=== PATIENT | male | born 1990 | race Caucasian/White ===

== ENCOUNTER 2020-04-17 23:34 | Emergency (ER) | payer MEDICAID, SELFPAY ==
--- NOTE | ~2020-04-17 | CT_ITS ---
EXAMINATION: CT abdomen pelvis w con DATE: 04/18/2020 01:21 INDICATION: Right upper quadrant pain, burning. Nausea, vomiting and diarrhea for 6 days. TECHNIQUE: Computed tomography (CT) of the abdomen and pelvis was performed with 100 cc Omnipaque 350 intravenous contrast. Automated exposure control and iterative reconstruction technique were employe d. Exam dose: 1483.32 mGy-cm total exam DLP. COMPARISON: 04/29/2019 CT abdomen pelvis FINDINGS: The lung bases are clear. Normal heart size. No pericardial or pleural effusion. The gallbladder is unremarkable. No bile duct or pancreatic duct dilatation. No hepatic, splenic, pancreatic or right adrenal mass is noted. Stable 7 mm left adrenal nodule, like ly a small adenoma. No renal mass lesion is evident. There are 2 up to 4 mm contiguous nonobstructing left renal calculi. No ureteral calculus or hydroureteronephrosis. The urinary bladder is largely evacuated. The prostat e gland appears unremarkable. Normal caliber of the abdominal aorta. No intraperitoneal or retroperitoneal or pelvic mass lesion or adenopathy or ascites. 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 No bowel obstruction, bowel wall thickening, pneumatosis or intraperitoneal free air. No evidence of appendicitis. Chronic mild loss of height and anterior wedging of T11. IMPRESSION: Nonobstructing left nephrolithiasis Reviewed, dictated and finalized at [facility]. Reviewed, dictated and finalized at [facility].
[2020-04-17 23:37] VITALS: BP 175/100; PULSE 103; RESP 18; TEMP 37; O2SAT 99
[2020-04-18 00:17] LABS: Basophils Absolute Auto 0.1 K/mm3 (0.0-0.1); Basophils Percent Auto 0.6 % (0.2-1.2); Eosinophils Percent Auto 0.4 % (0-4.4); Hematocrit 45.7 % (42.0-52.0); Hemoglobin 16.3 g/dL (14.0-18.0); Immature Granulocyte Absolute 0.03 K/mm3 (0.00-0.031); Immature Granulocyte Percent A 0.4 % (0-0.5); Lymphocytes Absolute Auto 1.59 K/mm3 (0.9-3.2); Mean Corpuscular HGB Conc 35.7 g/dl (32-36); Mean Corpuscular Hemoglobin 30.9 pg (26-34); Mean Corpuscular Volume 86.6 fl (80-100); Mean Platelet Volume 10.6 fl (7.4-10.4); Monocytes Absolute Auto 0.8 K/mm3 (0.1-0.6); Monocytes Percent Auto 8.9 % (2.6-8.5); Neutrophils Absolute Auto 5.9 K/mm3 (1.3-6.7); Neutrophils Percent Auto 70.7 % (45.5-73.1); Platelet Count Result 228 k/mm3 (150-375); Red Blood Count 5.28 M/mm3 (4.6-6.20); Red Cell Distribution Width 12.6 % (11.5-14.5); White Blood Count 8.4 K/mm3 (4.5-10.0)
--- NOTE | 2020-04-18 00:36 | ED.NAVMDI ---
HPI - Nausea/Vomiting/Diarrhea General Chief complaint: Nausea/Vomiting/Diarrhea Stated complaint: UNCONTROLLABLE VOMITING Time Seen by Provider: 04/18/20 00:14 History of Present Illness HPI Narrative: Patient presents with upper abdominal pain vomiting for 5 days. He has a history of cyclic vomiting. He stopped smoking marijuana a year ago and then resumed it again. He has had a GI work-up with no firm diagnosis. He says the pain is 8 out of 10. He denies fever chills and sweats. Surgical history of circumcision. 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 MD elicited complaint: nausea and vomiting Pertinent past history: cyclical vomiting Onset (ago): day(s) Description of vomiting: food contents Associated nausea: Yes Associated abdominal pain: Yes Location of pain: epigastric Pain consistency: intermittent Severity: moderate Exacerbating factors: vomiting Relieving factors: none Related Data Allergies Allergy/AdvReac Type Severity Reaction Status Date / Time No Known Allergies Allergy Unverified 04/17/20 23:36 Review of Systems Review of Systems: Narrative: CONSTITUTIONAL: Denies fever, chills, or sweats. EYES: Denies visual changes, redness, or discharge. ENT: Denies rhinorrhea, congestion, sore throat, or otalgia. CARDIOVASCULAR: Denies chest pain, palpitations, or edema. RESPIRATORY: Denies cough or dyspnea. GASTROINTESTINAL: He has abdominal pain, nausea, vomiting, but not diarrhea. GENITOURINARY: Denies dysuria or hematuria. SKIN: Denies rash or itching. MUSCULOSKELETAL: Denies back pain, joint pain, or myalgia. NEUROLOGIC: Denies headache, numbness, or weakness. . All systems reviewed & are unremarkable except as noted in HPI and below PMFSH Past Medical History Medical History Cyclic vomiting syndrome Overweight Surgical History Surgical History (Updated 04/18/20 @ 00:43 by Mahi Kruger MD) History of circumcision Social History Social History (Updated 04/18/20 @ 00:43 by Mahi Kruger MD) Alcohol intake: current Substance use: current Substance use type: marijuana Gender identity (if verbalized by the patient): Male Exam Narrative: Exam Narrative: GENERAL: Well-appearing, well-nourished, and in no acute distress. Overweight. Laying with his hand between his legs. HEAD: Normocephalic, atraumatic. EYES: PERRLA and EOMI. ENT: Nares clear, no rhinorrhea or epistaxis. Mucous membranes moist. NECK: Supple. CHEST: Clear to auscultation. No respiratory distress. HEART: Regular rate and rhythm. No murmur heard. Normal peripheral pulses. ABDOMEN: Soft, nontender, nondistended, normal active bowel sounds. EXTREMITIES: Normal range of motion. No edema. SKIN: Warm, dry, no rash. NEURO: No focal deficits. Alert and oriented x3. PSYCH: Normal mood and affect. Course Reevaluation(s) Reevaluation #1: Went back in to tell the patient the results of his CAT scan. He is feeling better. He has 1 Zofran left at home. But he said it does not really work. I offered Phenergan suppositories and he accepts. Date: 04/18/20 Time: 01:53 Vital Signs Vital signs: Vital Signs Temperature 98.6 F 04/17/20 23:37 Pulse Rate 103 H 04/17/20 23:37 Respiratory Rate 18 04/17/20 23:37 Blood Pressure 175/100 H 04/17/20 23:37 Pulse Oximetry 99 04/17/20 23:37 Temperature 98.6 F 04/17/20 23:37 Pulse Rate 103 H 04/17/20 23:37 Respiratory Rate 18 04/17/20 23:37 Blood Pressure 175/100 H 04/17/20 23:37 Pulse Oximetry 99 04/17/20 23:37 MDM - Nausea/Vomiting/Diarrhea Medical Records Attestation: I reviewed the patient's medical records. Lab Data Attestation: I reviewed the patient's lab results. Result diagrams: 04/17/20 23:49 04/17/20 23:49 Labs: Lab Results 04/17/20 04/17/20 04/18/20 Range/Units 23:49 23:49 00:27 WBC 8.4 (4.5-10.0) K/mm3 RBC 5.28 (4.6-6.20) M/mm3 Hgb 16.3 (14.0-18.0)
[2020-04-18 00:37] LABS: Alanine Aminotransferase 35 U/L (4-50); Albumin Level 5.2 g/dL (3.5-5.1); Alkaline Phosphatase 109 U/L (38-126); Anion Gap 18.1 mmol/L (7-16); Aspartate Amino Transferase 41 U/L (17-59); Bilirubin,Total 1.7 mg/dL (0.2-1.3); Blood Urea Nitrogen 18 mg/dL (9-20); Calcium 9.6 mg/dL (8.4-10.2); Carbon Dioxide 23 mmol/L (22-30); Chloride 96 mmol/L (98-107); Estimated CRCL calculation 118 ml/min; Estimated Glomerular Filt Rate > 60; Glucose 107 mg/dL (75-110); Lipase 178 U/L (23-300); Potassium 4.1 mmol/L (3.4-5.0); Sodium 133 mmol/L (137-145)
[2020-04-18 00:40] LABS: Add Urine Microscopic? YES; Appearance Urine Clear (Clear); Bacteria Urine Trace /hpf; Bilirubin Urine Negative (Negative); Blood Urine 1+ (Negative); Color Urine Amber (Yellow); Glucose Urine UA Negative (Negative); Ketones Urine 1+ mg/dL (Negative); Leukocyte Esterase Ur Negative LEU/UL (Negative); Mucus Urine Heavy /lpf; Nitrate Urine Negative (Negative); Protein Urine 3+ mg/dL (Negative); RBC Urine 0-2 /hpf (0-2); Squamous Epithelial Cell Urine Rare /hpf (Few); WBC Urine 0-3 /hpf
[2020-04-18 00:44] LABS: Specific Grav Ur 1.034 (1.001-1.035)
[2020-04-18] MEDS: ONDANSETRON INJ 4 MG/2 ML VIAL IV PUSH (00:53)
[2020-04-18] MEDS: FAMOTIDINE 20 MG/2 ML VIAL IV PUSH (00:54)
[2020-04-18] MEDS: SODIUM CHLORIDE 0.9% IV 1,000 ML 999 ML IV CONT (00:56)
[2020-04-18] MEDS: KETOROLAC 15 MG/ML VIAL (*BKC) IV PUSH (00:56)
[2020-04-18 01:26] VITALS: TEMP 37
[2020-04-18 01:29] VITALS: BP 156/81; PULSE 97; RESP 16; O2SAT 99
[2020-04-18 02:15] VITALS: BP 166/85; PULSE 91; RESP 16; TEMP 36.3; O2SAT 100
== END 2020-04-18 02:18 | disposition home or self-care (01) ==
PROVIDERS: Emergency Provider Emergency Medicine; PCP Family Medicine
DX: R11.15 Cyclical vomiting syndrome unrelated to migraine (principal); E66.3 Overweight; Z68.37 Body mass index [BMI] 37.0-37.9, adult
CPT/HCPCS: 36415; 74177; 80053; 81001; 83690; 85025; 96361; 96374; 96375; 99284; J1885; J2405; J7030; Q9967

== ENCOUNTER 2020-08-01 09:29 | Outpatient (CLI) | payer OTHER, SELFPAY ==
--- NOTE | ~2020-08-01 | XR_ITS ---
XR abdomen/kub 1V DATE: 08/01/2020 10:04 INDICATION: Left kidney stone TECHNIQUE: AP projection, 2 views COMPARISON: 04/18/2020 CT abdomen pelvis with IV contrast material FINDINGS: Surgical clips, right upper quadrant, consistent with apparent cholecystectomy since 04/18/[address] abdomen pelvis examination. Approximately 2 x 9 mm calcified calculus of the mid left kidney. The psoas shadows are intact. No visceromegaly is evident. There is no evidence of bowel obstruction. Included skeletal structures are unremarkable. IMPRESSION: Evidence of cholecystectomy since 04/18/2020 Left nonobstructive nephrolithiasis Reviewed, dictated and finalized at [facility]. Reviewed, dictated and finalized at [facility]. [employer] SPECIALIST
== END 2020-08-01 09:30 | disposition home or self-care (01) ==
PROVIDERS: PCP Family Medicine
DX: N20.0 Calculus of kidney (principal)
CPT/HCPCS: 74018

== ENCOUNTER 2020-08-22 00:57 | Emergency (ER) | payer OTHER, SELFPAY ==
--- NOTE | ~2020-08-22 | XR_ITS ---
EXAMINATION: XR chest 1V portable DATE: 08/22/2020 01:59 INDICATION: Cough TECHNIQUE: frontal view of the chest was obtained. COMPARISON: Chest radiograph dated 04/26/2019 FINDINGS: The lungs are clear with no focal airspace opacities, pulmonary edema, pleural effusion or pneumothor ax. The cardiomediastinal silhouette is normal. Visualized bones and soft tissues are unremarkable. IMPRESSION: 1. No acute cardiopulmonary disease. Reviewed, dictated and finalized at [facility]. PROCESS WORKER
[2020-08-22 01:03] VITALS: BP 174/94; PULSE 84; RESP 20; TEMP 36.8; O2SAT 97
--- NOTE | 2020-08-22 01:12 | ECG_ITS ---
Measurements Intervals [place] Rate: 76 P: 53 IL: 144 QRS: 51 QRSD: 121 T: 19 QT: 388 QTc: 438 Interpretive Statements SINUS RHYTHM RIGHT BUNDLE BRANCH BLOCK BASELINE ARTIFACT- I, II, III, V1 ABNORMAL ECG Electronically Signed On 08-22-2020 7:04:42 TUBE WINDER by Reymundo Kamara D.O.
--- NOTE | 2020-08-22 01:15 | ED.GENADULT ---
HPI - General Adult General Chief complaint: Nausea/Vomiting/Diarrhea Stated complaint: Covid-19 symptoms Time Seen by Provider: 08/22/20 01:05 Source: patient Mode of arrival: ambulatory Limitations: no limitations History of Present Illness HPI narrative: This patient is a 30 year old male with history of cyclic vomiting who presents for evaluation of possible covid. He states he has not felt well since Thursday. He is having nausea, vomiting, diarrhea , cough and congestion. He has mid abdominal pain intermittent prior to episodes of vomiting or diarrhea. He reports that his cough usually proceeds his vomiting but it seems worse today. He denies fever but he states he feels warm prior to having emesis. He denies any sick contacts. Related Data Allergies Allergy/AdvReac Type Severity Reaction Status Date / Time No Known Allergies Allergy Unverified 04/17/20 23:36 Review of Systems Review of Systems: All systems reviewed & are unremarkable except as noted in HPI and below Constitutional: Constitutional: Reports fatigue and Denies fever(s) ENT: Reports nasal congestion and Denies sore throat Cardiovascular: Cardiovascular: Denies chest pain Respiratory: Respiratory: Reports cough, Reports dyspnea and Denies wheezing Gastrointestinal: Gastrointestinal: Reports abdominal pain, Reports diarrhea, Reports nausea and Reports vomiting PMFSH Past Medical History Medical History (Updated 08/22/20 @ 04:22 by Debbie Pugh MD) Cyclic vomiting syndrome Overweight Surgical History Surgical History (Updated 08/22/20 @ 01:19 by Debbie Pugh MD) History of circumcision Hx of cholecystectomy Social History Social History (Updated 08/22/20 @ 01:20 by Debbie Pugh MD) Alcohol intake: current Substance use: current Substance use type: marijuana Other substance usage details: he states he has cut down on marijuana use over the past 2 weeks. Gender identity (if verbalized by the patient): Male Exam Narrative: Exam Narrative: GENERAL: Well-appearing, well-nourished, and in no acute distress. HEAD: Normocephalic, atraumatic EYES: PERRLA and EOMI, conjunctiva clear without discharge THROAT:Mucous membranes moist, NECK: Supple, RESPIRATORY: No respiratory distress, Airway patent, Respirations non-labored, Clear to auscultation without rales, rhonchi or wheeze HEART: Regular rate and rhythm. No murmur heard. Normal peripheral pulses. ABDOMEN: Soft, nontender, nondistended, normal active bowel sounds. No masses. No rebound or guarding, No organomegaly. EXTREMITIES: No edema, normal strength with full range of motion. SKIN: Warm, dry, normal color without rash NEURO: Alert and oriented x3. CN 2-12 grossly intact. No focal deficits. PSYCH: Normal mood and affect. Course Reevaluation(s) Reevaluation #1: I discussed with patient that labs are unremarkable. His chest xray is normal. He has no complaints currently and he is able to tolerate PO. Date: 08/22/20 Time: 04:20 Vital Signs Vital signs: Vital Signs Temperature 98.2 F 08/22/20 01:03 Pulse Rate 84 08/22/20 01:03 Respiratory Rate 20 08/22/20 01:03 Blood Pressure 174/94 H 08/22/20 01:03 Pulse Oximetry 97 08/22/20 01:03 Temperature 98.2 F 08/22/20 01:03 Pulse Rate 77 08/22/20 04:50 Respiratory Rate 18 08/22/20 04:50 Blood Pressure 152/86 H 08/22/20 04:50 Pulse Oximetry 99 08/22/20 04:50 Medical Decision Making Vital Signs Vital Signs: Vital Signs Temperature 98.2 F 08/22/20 01:03 Pulse Rate 84 08/22/20 01:03 Respiratory Rate 20 08/22/20 01:03 Blood Pressure 174/94 H 08/22/20 01:03 Pulse Oximetry 97 08/22/20 01:03 Temperature 98.2 F 08/22/20 01:03 Pulse Rate 77 08/22/20 04:50 Respiratory Rate 18 08/22/20 04:50 Blood Pressure 152/86 H 08/22/20 04:50 Pulse Oximetry 99 08/22/20 04:50 Lab Data Lab results reviewed: Yes I reviewed the pat
[2020-08-22] MEDS: SODIUM CHLORIDE 0.9% IV 1,000 ML 999 ML IV CONT ×2 (01:34→03:00)
[2020-08-22] MEDS: ONDANSETRON INJ 4 MG/2 ML VIAL IV PUSH (01:35)
[2020-08-22 01:57] VITALS: BP 156/97; PULSE 74
[2020-08-22 01:58] VITALS: BP 159/99; PULSE 71
[2020-08-22 01:59] VITALS: BP 152/83; PULSE 72
[2020-08-22 02:04] LABS: Basophils Percent Auto 0.4 % (0.2-1.2); Eosinophils Percent Auto 0.5 % (0-4.4); Hemoglobin 15.6 g/dL (14.0-18.0); Immature Granulocyte Absolute 0.03 K/mm3 (0.00-0.031); Immature Granulocyte Percent A 0.4 % (0-0.5); Lymphocytes Absolute Auto 1.72 K/mm3 (0.9-3.2); Lymphocytes Percent Auto 21.3 % (18.3-44.2); Mean Corpuscular HGB Conc 35.5 g/dl (32-36); Mean Corpuscular Hemoglobin 31.3 pg (26-34); Mean Corpuscular Volume 88.2 fl (80-100); Mean Platelet Volume 10.5 fl (7.4-10.4); Monocytes Absolute Auto 0.6 K/mm3 (0.1-0.6); Monocytes Percent Auto 7.8 % (2.6-8.5); Neutrophils Absolute Auto 5.6 K/mm3 (1.3-6.7); Neutrophils Percent Auto 69.6 % (45.5-73.1); Platelet Count Result 183 k/mm3 (150-375); Red Blood Count 4.99 M/mm3 (4.6-6.20); Red Cell Distribution Width 12.4 % (11.5-14.5); White Blood Count 8.1 K/mm3 (4.5-10.0)
[2020-08-22 02:20] LABS: Alanine Aminotransferase 26 U/L (4-50); Albumin Level 4.9 g/dL (3.5-5.1); Alkaline Phosphatase 121 U/L (38-126); Anion Gap 13 mmol/L (8-16); Aspartate Amino Transferase 30 U/L (17-59); Bilirubin,Total 0.8 mg/dL (0.2-1.3); Blood Urea Nitrogen 9 mg/dL (9-20); Calcium 9.7 mg/dL (8.4-10.2); Carbon Dioxide 24 mmol/L (22-30); Chloride 105 mmol/L (98-107); Estimated CRCL calculation 122 ml/min; Estimated Glomerular Filt Rate > 60; Glucose 133 mg/dL (75-110); Lipase 57 U/L (23-300); Potassium 3.4 mmol/L (3.4-5.0); Sodium 142 mmol/L (137-145)
[2020-08-22 02:23] LABS: CRP 0.6 mg/dL (<1.0)
[2020-08-22] MEDS: PROMETHAZINE HCL 25 MG/ML AMPUL 12.5 MG IV PUSH (02:33)
[2020-08-22] MEDS: SODIUM CHLORIDE 0.9% IV 50 ML (02:34)
[2020-08-22 03:17] VITALS: BP 155/98; PULSE 86; RESP 18; O2SAT 100
[2020-08-22 04:17] LABS: Add Urine Microscopic? YES; Appearance Urine Clear (Clear); Bacteria Urine Trace /hpf; Bilirubin Urine Negative (Negative); Blood Urine Negative (Negative); Color Urine Yellow (Yellow); Glucose Urine UA Negative (Negative); Ketones Urine 2+ mg/dL (Negative); Leukocyte Esterase Ur Negative LEU/UL (Negative); Mucus Urine Heavy /lpf; Nitrate Urine Negative (Negative); Protein Urine 1+ mg/dL (Negative); RBC Urine 0-2 /hpf (0-2); Specific Grav Ur 1.024 (1.001-1.035); Urobilinogen Urine Negative mg/dL (<2.0); WBC Urine 0-3 /hpf
[2020-08-22 04:50] VITALS: BP 152/86; PULSE 77; RESP 18; O2SAT 99
[2020-08-22 14:22] LABS: SARS-CoV-2 RNA PCR Negative
== END 2020-08-22 05:20 | disposition home or self-care (01) ==
PROVIDERS: Emergency Provider General Practice; PCP Family Medicine
DX: Z20.828 Contact with and (suspected) exposure to other viral communicable diseases (principal); B34.9 Viral infection, unspecified
CPT/HCPCS: 36415; 71045; 80053; 81001; 83690; 85025; 86140; 87635; 87804; 93005; 96361; 96374; 96375; 99284; C9803; J2405; J2550; J7030; U0003

== ENCOUNTER 2020-12-31 05:58 | Emergency (ER) | payer OTHER, SELFPAY ==
[2020-12-31] VITALS (7 sets, daily range): BP systolic 129–175; BP diastolic 75–109; PULSE 73–102; RESP 17–18; TEMP 37; O2SAT 97–99
--- NOTE | ~2020-12-31 | CT_ITS ---
EXAMINATION: CT abdomen pelvis w con DATE: 12/31/2020 07:39 INDICATION: Abdominal pain. Leukocytosis. TECHNIQUE: Computed tomography (CT) of the abdomen and pelvis was performed with 100 cc Omnipaque 350 intravenous contrast. Automated exposure control and iterative reconstruction technique were employe d. Exam dose: 1282.74 mGy-cm total exam DLP. COMPARISON: 04/18/2020 CT abdomen pelvis FINDINGS: The lung bases are clear. Normal heart size. No pericardial or pleural effusion. Status post cholecystectomy. No hepatic, splenic, pancreatic, adrenal or renal mass lesion is evident . No bile duct or pancreatic duct dilatation. Approximately 4 x 9.4 mm calculus or 2 contiguous calculi of the left kidney, nonobstructing. No othe r urinary tract calculus. No ureteral calculus or hydroureteronephrosis. Left-sided inferior vena cava, anatomic variant. Normal caliber of the abdominal aorta. No intraperitoneal or retroperitoneal or pelvic mass lesion or adenopathy or ascites. Moderate thickness of the urinary bladder wall which may be due to underdistention. Prostate gland ap pears normal. The colon is evacuated. No bowel obstruction or intraperitoneal free air. Small fat-containing umbilical hernia. No suspicious osteolytic or osteoblastic lesions. Stable chronic mild anterior wedging of T11 and mil d degenerative spurring of the thoracic and lumbar spine. IMPRESSION: Nonobstructive left nephrolithiasis Status post cholecystectomy Left-sided inferior vena cava Reviewed, dictated and finalized at [facility]. Reviewed, dictated and finalized at [facility].
--- NOTE | 2020-12-31 06:07 | ED.ABDPAIN ---
HPI - Abdominal Pain General Chief Complaint: Abdominal Pain <Shawn Serrano MD - Last Filed: 12/31/20 18:56> Stated Complaint: vomiting and muscle cramps <Shawn Serrano MD - Last Filed: 12/31/20 18:56> Time Seen by Provider: 12/31/20 06:00 <Shawn Serrano MD - Last Filed: 12/31/20 18:56> History of Present Illness HPI narrative: 30 yo male with h/o cyclic vomiting syndrome presents to the ED for nausea and vomiting. He has been vomiting for the past 2 days. He reports that the vomiting is accompanied severe abdominal cramping and back pain. He has no pain at this time. He has not tried anything for his symptoms. No fever. <Shawn Serrano MD - Last Filed: 12/31/20 18:56> Related Data Allergies/Adverse Reactions: Allergies Allergy/AdvReac Type Severity Reaction Status Date / Time No Known Allergies Allergy Unverified 04/17/20 23:36 <Shawn Serrano MD - Last Filed: 12/31/20 18:56> Review of Systems Review of Systems: All systems reviewed & are unremarkable except as noted in HPI and below <Shawn Serrano MD - Last Filed: 12/31/20 18:56> Constitutional: Constitutional: Denies fever(s) <Shawn Serrano MD - Last Filed: 12/31/20 18:56> Eyes: Eyes: Reports no additional eye complaints <Shawn Serrano MD - Last Filed: 12/31/20 18:56> ENT: Reports system reviewed and no additional complaints, except as documented <Shawn Serrano MD - Last Filed: 12/31/20 18:56> Cardiovascular: Cardiovascular: Denies chest pain <Shawn Serrano MD - Last Filed: 12/31/20 18:56> Respiratory: Respiratory: Denies dyspnea <Shawn Serrano MD - Last Filed: 12/31/20 18:56> Gastrointestinal: Gastrointestinal: Reports nausea and Reports vomiting <Shawn Serrano MD - Last Filed: 12/31/20 18:56> Musculoskeletal: Musculoskeletal: Reports back pain <Shawn Serrano MD - Last Filed: 12/31/20 18:56> [facility] Past Medical History Medical History: Medical History Cyclic vomiting syndrome Overweight <Shawn Serrano MD - Last Filed: 12/31/20 18:56> Surgical History Surgical History: Surgical History History of circumcision Hx of cholecystectomy <Shawn Serrano MD - Last Filed: 12/31/20 18:56> Social History Social History: Social History Alcohol intake: current Substance use: current Substance use type: marijuana Other substance usage details: he states he has cut down on marijuana use over the past 2 weeks. Gender identity (if verbalized by the patient): Male <Shawn Serrano MD - Last Filed: 12/31/20 18:56> Exam Const: General: no acute distress and alert <Shawn Serrano MD - Last Filed: 12/31/20 18:56> Orientation/consciousness: patient oriented x3 <Shawn Serrano MD - Last Filed: 12/31/20 18:56> HENMT: Head: normal to inspection <Shawn Serrano MD - Last Filed: 12/31/20 18:56> Resp: Effort & Inspection: normal respiratory effort <Shawn Serrano MD - Last Filed: 12/31/20 18:56> Auscultation: clear to auscultation bilaterally <Shawn Serrano MD - Last Filed: 12/31/20 18:56> Cardio: Rate: regular rate <Shawn Serrano MD - Last Filed: 12/31/20 18:56> Rhythm: regular rhythm <Shawn Serrano MD - Last Filed: 12/31/20 18:56> GI: Inspection: non-distended <Shawn Serrano MD - Last Filed: 12/31/20 18:56> GI Palp: Yes Soft to palpation and No Tenderness to palpation present (GI) <Shawn Serrano MD - Last Filed: 12/31/20 18:56> Skin: General skin exam: normal color <Shawn Serrano MD - Last Filed: 12/31/20 18:56> Neuro: General: patient oriented x3, moves all extremities, no focal motor deficits and CN's II-XI intact bilaterally <Shawn Serarno MD - Last Filed: 12/31/20 18:5
[2020-12-31] MEDS: SODIUM CHLORIDE 0.9% IV 2,000 ML 999 ML IV CONT (06:20)
[2020-12-31] MEDS: ONDANSETRON INJ 4 MG/2 ML VIAL IV PUSH (06:20)
[2020-12-31] MEDS: DICYCLOMINE HCL INJ 20 MG/2 ML VIAL IM (06:20)
[2020-12-31 06:28] LABS: Basophils Percent Auto 0.2 % (0.2-1.2); Hemoglobin 16.3 g/dL (14.0-18.0); Immature Granulocyte Absolute 0.04 K/mm3 (0.00-0.031); Immature Granulocyte Percent A 0.4 % (0-0.5); Lymphocytes Absolute Auto 1.07 K/mm3 (0.9-3.2); Lymphocytes Percent Auto 9.4 % (18.3-44.2); Mean Corpuscular HGB Conc 35.4 g/dl (32-36); Mean Corpuscular Volume 87.6 fl (80-100); Mean Platelet Volume 10.4 fl (7.4-10.4); Monocytes Percent Auto 8.5 % (2.6-8.5); Neutrophils Absolute Auto 9.3 K/mm3 (1.3-6.7); Neutrophils Percent Auto 81.5 % (45.5-73.1); Platelet Count Result 261 k/mm3 (150-375); Red Blood Count 5.25 M/mm3 (4.6-6.20); Red Cell Distribution Width 12.6 % (11.5-14.5); White Blood Count 11.4 K/mm3 (4.5-10.0)
[2020-12-31 06:37] LABS: Alanine Aminotransferase 25 U/L (4-50); Albumin Level 5.4 g/dL (3.5-5.1); Alkaline Phosphatase 120 U/L (38-126); Anion Gap 11 mmol/L (8-16); Aspartate Amino Transferase 42 U/L (17-59); Bilirubin,Total 1.1 mg/dL (0.2-1.3); Blood Urea Nitrogen 14 mg/dL (9-20); Calcium 9.9 mg/dL (8.4-10.2); Carbon Dioxide 27 mmol/L (22-30); Chloride 100 mmol/L (98-107); Estimated Glomerular Filt Rate > 60; Glucose 163 mg/dL (75-110); Lipase 73 U/L (23-300); Potassium 3.9 mmol/L (3.4-5.0); Sodium 138 mmol/L (137-145)
[2020-12-31 06:39] LABS: Add Urine Microscopic? YES; Appearance Urine Cloudy (Clear); Bacteria Urine Trace /hpf; Bilirubin Urine Negative (Negative); Blood Urine 1+ (Negative); Color Urine Amber (Yellow); Glucose Urine UA Negative (Negative); Ketones Urine 1+ mg/dL (Negative); Leukocyte Esterase Ur Negative LEU/UL (Negative); Mucus Urine Heavy /lpf; Nitrate Urine Negative (Negative); Protein Urine 3+ mg/dL (Negative); RBC Urine 0-2 /hpf (0-2); Urobilinogen Urine Negative mg/dL (<2.0); WBC Urine 0-3 /hpf
[2020-12-31 06:44] LABS: Specific Grav Ur 1.033 (1.001-1.035)
[2020-12-31] MEDS: PROMETHAZINE HCL 25 MG/ML AMPUL 12.5 MG IV PUSH (06:54)
[2020-12-31] MEDS: SODIUM CHLORIDE 0.9% IV 1,000 ML 999 ML IV CONT (07:16)
[2020-12-31] MEDS: FAMOTIDINE 20 MG/2 ML VIAL IV PUSH (07:16)
--- NOTE | 2020-12-31 07:22 | PC.NURSE ---
Assumed care of pt at this time, report received from Ronda ZUÑIGA. Pt resting upright and alert on stretcher, fluids infusing. VSS.
--- NOTE | 2020-12-31 07:31 | PC.NURSE ---
Pt to CT via stretcher at this time
== END 2020-12-31 09:23 | disposition home or self-care (01) ==
PROVIDERS: Emergency Medicine; Emergency Provider Emergency Medicine; PCP Family Medicine
DX: R11.2 Nausea with vomiting, unspecified (principal); N20.0 Calculus of kidney
CPT/HCPCS: 36415; 74177; 80053; 81001; 83690; 85025; 96361; 96372; 96374; 96375; 99284; J0131; J0500; J2405; J2550; J7030; Q9967

== ENCOUNTER 2021-01-01 02:35 | Emergency (ER) | payer OTHER, SELFPAY ==
[2021-01-01 02:41] VITALS: BP 159/90; PULSE 75; RESP 18; TEMP 37.1; O2SAT 98
--- NOTE | 2021-01-01 03:51 | PC.NURSE ---
0330-noted patient getting emesis bag by intake desk [id number]--no answer to call [phone]--other waiting room patrons reported seeing patient walk out-patient did not stop or say that he was leaving
== END 2021-01-01 04:00 | disposition left against medical advice (07) ==
LOC: ANHED 05:00
PROVIDERS: PCP Family Medicine
DX: Z53.21 Procedure and treatment not carried out due to patient leaving prior to being seen by health care provider (principal)
CPT/HCPCS: 99199

== ENCOUNTER 2021-01-01 15:10 | Emergency (ER) | payer OTHER, SELFPAY ==
[2021-01-01 15:14] VITALS: BP 161/94; PULSE 84; RESP 16; TEMP 37.6; O2SAT 98
--- NOTE | 2021-01-01 16:00 | ED.ABDPAIN ---
HPI - Abdominal Pain General Chief Complaint: Abdominal Pain <DILCIA Zaldivar Last Filed: 01/01/21 18:53> Stated Complaint: vomiting, diarrhea <DILCIA Zaldivar Last Filed: 01/01/21 18:53> Time Seen by Provider: 01/01/21 15:47 <Marylin Roberts PA-C - Last Filed: 01/01/21 18:53> Source: patient <DILCIA Zaldivar Last Filed: 01/01/21 18:53> Mode of arrival: ambulatory <DILCIA Zaldivar Last Filed: 01/01/21 18:53> Limitations: no limitations <DILCIA Zaldivar Last Filed: 01/01/21 18:53> History of Present Illness HPI narrative: This is a 30 year old male that presents to the ER for nausea and vomiting x 2 days. Associated with upper abdominal discomfort and diarrhea. He was seen here for this yesterday. Reports returned nausea and vomiting and upper abdominal discomfort. He is unable to keep down the nausea medication. Denies fever or dysuria. <DILCIA Zaldivar Last Filed: 01/01/21 18:53> Related Data Allergies/Adverse Reactions: Allergies Allergy/AdvReac Type Severity Reaction Status Date / Time No Known Allergies Allergy Verified 01/01/21 02:37 <DILCIA Zaldivar Last Filed: 01/01/21 18:53> Review of Systems Review of Systems: Narrative: CONSTITUTIONAL: Denies fever GASTROINTESTINAL: Reports abdominal pain, nausea, vomiting, and diarrhea. GENITOURINARY: Denies dysuria <DILCIA Zaldivar Last Filed: 01/01/21 18:53> All systems reviewed & are unremarkable except as noted in HPI and below <DILCIA Zaldivar Last Filed: 01/01/21 18:53> PMFSH Past Medical History Medical History: Medical History Cyclic vomiting syndrome Overweight <DILCIA Zaldivar Last Filed: 01/01/21 18:53> Surgical History Surgical History: Surgical History History of circumcision Hx of cholecystectomy <Marylin Roberts PA-C - Last Filed: 01/01/21 18:53> Social History Social History: Social History Alcohol intake: current Substance use: current Substance use type: marijuana Other substance usage details: he states he has cut down on marijuana use over the past 2 weeks. Gender identity (if verbalized by the patient): Male <Marylin Roberts PA-C - Last Filed: 01/01/21 18:53> Exam Narrative: Exam Narrative: GENERAL: Well-appearing, well-nourished, and in no acute distress. HEAD: Normocephalic, atraumatic. EYES: EOMI. CHEST: Clear to auscultation. No respiratory distress. No wheezes rales or rhonchi HEART: Regular rate and rhythm. No murmur heard. Normal peripheral pulses. ABDOMEN: Soft, nondistended, normal active bowel sounds. Mild tenderness to palpation throughout the epigastrium, without guarding. No CVA tenderness EXTREMITIES: Normal range of motion. No edema. SKIN: Warm, dry, no rash. NEURO: No focal deficits. Alert and oriented x3. PSYCH: Normal mood and affect <Marylin Roberts PA-C - Last Filed: 01/01/21 18:53> Course [employer]/PA Physician Supervision Pt returns for nausea and vomiting. I actually evaluated the patient yesterday, and pt again with nausea and vomiting. He has a reassuring exam and I don't feel he needs a repeat CT scan given he had one 24 hours ago and was normal. No severe electrolyte derangement or leukocytosis. Pt then decided to leave AMA. Pt aware of risks of leaving AMA given his vomiting has not improved. Pt understanding of risks. He has capacity to make this decision. For this patient encounter, I reviewed the [employer]ISHER or PA documentation, treatment plan, and medical decision making; and I had [id number] time with this patient. <Oksana Harper MD - Last Filed: 01/01/21 19:10> Vital Signs Vital signs: Vital Signs Temperature 37.6 C 01/01/21 15:14 Pulse Rate 84 01/01/21 15:14 Respirat
[2021-01-01 16:09] LABS: Basophils Percent Auto 0.3 % (0.2-1.2); Eosinophils Percent Auto 0.1 % (0-4.4); Hematocrit 43.1 % (42.0-52.0); Hemoglobin 15.4 g/dL (14.0-18.0); Immature Granulocyte Absolute 0.03 K/mm3 (0.00-0.031); Immature Granulocyte Percent A 0.3 % (0-0.5); Lymphocytes Absolute Auto 1.43 K/mm3 (0.9-3.2); Lymphocytes Percent Auto 15.5 % (18.3-44.2); Mean Corpuscular HGB Conc 35.7 g/dl (32-36); Mean Corpuscular Hemoglobin 30.8 pg (26-34); Mean Corpuscular Volume 86.2 fl (80-100); Mean Platelet Volume 9.7 fl (7.4-10.4); Monocytes Absolute Auto 0.8 K/mm3 (0.1-0.6); Monocytes Percent Auto 9.1 % (2.6-8.5); Neutrophils Absolute Auto 6.9 K/mm3 (1.3-6.7); Neutrophils Percent Auto 74.7 % (45.5-73.1); Platelet Count Result 227 k/mm3 (150-375); Red Cell Distribution Width 12.3 % (11.5-14.5); White Blood Count 9.2 K/mm3 (4.5-10.0)
[2021-01-01] MEDS: SODIUM CHLORIDE 0.9% IV 1,000 ML 999 ML IV CONT (16:13)
[2021-01-01 16:15] LABS: Add Urine Microscopic? YES; Appearance Urine Cloudy (Clear); Bacteria Urine Trace /hpf; Bilirubin Urine Negative (Negative); Blood Urine 1+ (Negative); Color Urine Yellow (Yellow); Glucose Urine UA Negative (Negative); Ketones Urine 1+ mg/dL (Negative); Leukocyte Esterase Ur Negative LEU/UL (Negative); Mucus Urine Few /lpf; Nitrate Urine Negative (Negative); Protein Urine 2+ mg/dL (Negative); RBC Urine 0-2 /hpf (0-2); WBC Urine 0-3 /hpf
[2021-01-01] MEDS: diphenhydrAMINE HCl INJ 50 MG/ML VIAL 25 MG IV PUSH (16:15)
[2021-01-01] MEDS: FAMOTIDINE 20 MG/2 ML VIAL IV PUSH (16:15)
[2021-01-01] MEDS: METOCLOPRAMIDE HCL INJ 10 MG/2 ML VIAL IV PUSH (16:16)
[2021-01-01 16:18] LABS: Alanine Aminotransferase 25 U/L (4-50); Albumin Level 4.9 g/dL (3.5-5.1); Alkaline Phosphatase 99 U/L (38-126); Anion Gap 12 mmol/L (8-16); Aspartate Amino Transferase 46 U/L (17-59); Bilirubin,Total 1.3 mg/dL (0.2-1.3); Blood Urea Nitrogen 13 mg/dL (9-20); Calcium 9.2 mg/dL (8.4-10.2); Carbon Dioxide 26 mmol/L (22-30); Chloride 96 mmol/L (98-107); Estimated CRCL calculation 125 ml/min; Estimated Glomerular Filt Rate > 60; Glucose 119 mg/dL (75-110); Lipase 82 U/L (23-300); Potassium 3.5 mmol/L (3.4-5.0); Sodium 134 mmol/L (137-145)
[2021-01-01 16:33] VITALS: BP 118/75; PULSE 78; RESP 16; O2SAT 100
--- NOTE | 2021-01-01 17:58 | PC.NURSE ---
Pt provided cracker at this time for pt challenge per order from fredrick valente.
[2021-01-01 18:00] VITALS: BP 177/97; PULSE 76; RESP 16; O2SAT 100
--- NOTE | 2021-01-01 18:05 | PC.NURSE ---
Pt reports that he is extremely nauseated and vomitting after eating half of a crack. PA ambrosio informed, awaiting new orders.
[2021-01-01] MEDS: ONDANSETRON INJ 4 MG/2 ML VIAL IV PUSH (18:30)
[2021-01-01 18:55] VITALS: BP 154/68; PULSE 72; RESP 18; O2SAT 99
== END 2021-01-01 18:57 | disposition left against medical advice (07) ==
PROVIDERS: Physician Assistant; Emergency Provider Emergency Medicine; PCP Family Medicine
DX: R11.2 Nausea with vomiting, unspecified (principal); E66.3 Overweight; Z68.41 Body mass index [BMI] 40.0-44.9, adult
CPT/HCPCS: 36415; 80053; 81001; 83690; 85025; 96361; 96365; 96375; 99284; J0131; J1200; J2405; J2765; J7030

== ENCOUNTER 2021-01-22 13:54 | Outpatient (CLI) | payer OTHER, SELFPAY ==
--- NOTE | ~2021-01-22 | US_ITS ---
EXAMINATION: US retroperitoneal comp EXAM DATE: 01/22/2021 15:59 INDICATION: Benign neoplasm of left adrenal gland. TECHNIQUE: Multiple grayscale and Doppler images of the kidneys were obtained (by a technologist who performed the scan) and subsequently reviewed. There is no prior study for comparison. FINDINGS: Right kidney: There is normal contour and echogenicity. It measures 10.2 x 5.0 x 5.7 centimeters. T here are no focal renal lesions identified. There is no hydronephrosis. Left kidney: There is normal contour and echogenicity. It measures 12.5 x 5.7 x 5.0 centimeters. Th ere are no focal renal lesions identified. There is no hydronephrosis. Bladder unremarkable. IMPRESSION: 1. Sonographically unremarkable kidneys. Reviewed, dictated and finalized at location A.
== END 2021-01-22 13:55 | disposition home or self-care (01) ==
LOC: CHSIMG 13:56
PROVIDERS: PCP Family Medicine; Visit Provider Family Medicine
DX: D35.02 Benign neoplasm of left adrenal gland (principal)
CPT/HCPCS: 76770

== ENCOUNTER 2021-05-20 10:27 | Emergency (ER) | payer OTHER, SELFPAY ==
--- NOTE | ~2021-05-20 | XR_ITS ---
EXAMINATION: XR abdomen obstructive series DATE: 05/20/2021 13:29 INDICATION: 2 days of nausea and vomiting TECHNIQUE: Frontal supine and upright views of the abdomen were obtained. COMPARISON: CT dated 12/31/2020 FINDINGS: Small amount of gas scattered throughout the large and small bowel with no dilated gas-filled loops o f bowel to suggest obstruction. No free intraperitoneal gas. A couple stones, the larger measuring 5 mm projecting over the mid left kidney. Cholecystectomy clips in right upper quadrant. Visualized l elvi bases are clear. Phlebolith in the left hemipelvis. Bones are unremarkable. IMPRESSION: 1. No free intraperitoneal gas or dilated gas-filled loops of bowel to suggest obstruction. 2. Left nephrolithiasis. Reviewed, dictated and finalized at location A.
[2021-05-20 10:46] VITALS: BP 142/86; PULSE 77; RESP 16; TEMP 37.2; O2SAT 100
[2021-05-20 11:27] LABS: Add Urine Microscopic? YES; Appearance Urine Clear (Clear); Bilirubin Urine 1+ (Negative); Blood Urine Negative (Negative); Color Urine Amber (Yellow); Glucose Urine UA Negative (Negative); Ketones Urine 2+ mg/dL (Negative); Leukocyte Esterase Ur Negative LEU/UL (Negative); Mucus Urine Heavy /lpf; Nitrate Urine Negative (Negative); Protein Urine 2+ mg/dL (Negative)
[2021-05-20 11:37] LABS: Specific Grav Ur 1.035 (1.001-1.035)
[2021-05-20 12:17] VITALS: BP 126/85; PULSE 74; RESP 16; TEMP 36.8; O2SAT 100
[2021-05-20] MEDS: SODIUM CHLORIDE 0.9% IV 1,000 ML 999 ML IV CONT (13:01)
[2021-05-20] MEDS: ONDANSETRON INJ 4 MG/2 ML VIAL IV PUSH (13:01)
[2021-05-20] MEDS: PANTOPRAZOLE SODIUM IV 40 MG VIAL IV PUSH (13:01)
--- NOTE | 2021-05-20 13:22 | ED.NAVMDI ---
HPI - Nausea/Vomiting/Diarrhea General Chief complaint: Nausea/Vomiting/Diarrhea Stated complaint: vomiting/weak Time Seen by Provider: 05/20/21 12:32 Source: patient Mode of arrival: ambulatory Limitations: no limitations History of Present Illness HPI Narrative: This is a 31 year old male that presents to the ER for nausea and vomiting x 3 days. Reports he has not been able to keep much down. Denies fever, abdominal pain, dysuria, hematuria, or diarrhea. Related Data Allergies Allergy/AdvReac Type Severity Reaction Status Date / Time No Known Allergies Allergy Verified 05/20/21 12:21 Review of Systems Review of Systems: CONSTITUTIONAL: Denies fever GASTROINTESTINAL: Reports nausea, vomiting. Denies abdominal pain GENITOURINARY: Denies dysuria or hematuria. All systems reviewed & are unremarkable except as noted in HPI and below PMFSH Past Medical History Medical History Cyclic vomiting syndrome Overweight Surgical History Surgical History History of circumcision Hx of cholecystectomy Social History Social History Alcohol intake: current Substance use: current Substance use type: marijuana Other substance usage details: he states he has cut down on marijuana use over the past 2 weeks. Gender identity (if verbalized by the patient): Male Exam Narrative: GENERAL: Well-appearing, well-nourished, and in no acute distress. HEAD: Normocephalic, atraumatic. EYES: EOMI. CHEST: Clear to auscultation. No respiratory distress. No wheezes rales or rhonchi HEART: Regular rate and rhythm. No murmur heard. Normal peripheral pulses. ABDOMEN: Soft, nontender, nondistended, normal active bowel sounds. No CVA tenderness EXTREMITIES: Normal range of motion. No edema. SKIN: Warm, dry, no rash. NEURO: No focal deficits. Alert and oriented x3. PSYCH: Normal mood and affect Course Vital Signs Vital signs: Vital Signs Temperature 98.9 F 05/20/21 10:46 Pulse Rate 77 05/20/21 10:46 Respiratory Rate 16 05/20/21 10:46 Blood Pressure 142/86 H 05/20/21 10:46 Pulse Oximetry 100 05/20/21 10:46 Temperature 98.2 F 05/20/21 12:17 Pulse Rate 74 05/20/21 12:17 Respiratory Rate 16 05/20/21 12:17 Blood Pressure 126/85 05/20/21 12:17 Pulse Oximetry 100 05/20/21 12:17 MDM - Nausea/Vomiting/Diarrhea MDM Narrative Medical decision making narrative: Patient presents in the emergency department for nausea and vomiting ongoing over the last couple of days. He is afebrile and nontoxic-appearing. Vitals are stable. Abdominal exam is benign. CBC and metabolic panel without concerning findings. Lipase is negative. UA with 10-50 white blood cells, no leuk esterase or nitrates. Likely contaminated catch. This will be sent for culture. Patient does not have any urinary symptoms. Abdomen x-ray without acute findings. Patient was updated on case findings. Hydrated and given antiemetics in the ED. He was able to tolerate p.o. challenge. He is stable and felt appropriate for further outpatient evaluation. He was given warnings to return to the ER Lab Data Attestation: I reviewed the patient's lab results. Lab results narrative: ITS Impressions Abdomen X-Ray 05/20/21 13:36 IMPRESSION: 1. No free intraperitoneal gas or dilated gas-filled loops of bowel to suggest obstruction. 2. Left nephrolithiasis. Labs: Lab Results 05/20/21 Range/Units 11:07 Urine Color Arti (Yellow) Urine Appearance Clear (Clear) Urine pH 6.0 (5.0-9.0) Ur Specific Magness 1.035 (1.001-1.035) Urine Protein 2+ H (Negative) mg/dL Urine Glucose (UA) Negative (Negative) mg/dL Urine Ketones 2+ H (Negative) mg/dL Ur Blood (Man) Negative (Negative) Urine Nitrate Negative (Negative) Urine Bilirubin
[2021-05-20] MEDS: METOCLOPRAMIDE HCL INJ 10 MG/2 ML VIAL IV PUSH (13:36)
[2021-05-20] MEDS: diphenhydrAMINE HCl INJ 50 MG/ML VIAL 25 MG IV PUSH (13:36)
--- NOTE | 2021-05-20 14:57 | PC.NURSE ---
pt reports he was able to tolerate PO
[2021-05-20 15:25] VITALS: BP 137/76; PULSE 71; RESP 18; TEMP 36.8; O2SAT 100
== END 2021-05-20 15:26 | disposition home or self-care (01) ==
PROVIDERS: Emergency Provider Emergency Medicine; PCP Family Medicine
DX: R11.2 Nausea with vomiting, unspecified (principal)
CPT/HCPCS: 74019; 81001; 87086; 96361; 96374; 96375; 99284; C9113; J1200; J2405; J2765; J7030

== ENCOUNTER 2021-05-22 17:25 | Emergency (ER) | payer OTHER, SELFPAY ==
[2021-05-22] VITALS (19 sets, daily range): BP systolic 147–177; BP diastolic 54–111; PULSE 70–113; RESP 14–23; TEMP 36.8–37.6; O2SAT 94–100
[2021-05-22 18:07] LABS: Basophils Percent Auto 0.2 % (0.2-1.2); Eosinophils Percent Auto 0.2 % (0-4.4); Hematocrit 45.2 % (42.0-52.0); Hemoglobin 16.5 g/dL (14.0-18.0); Immature Granulocyte Absolute 0.03 K/mm3 (0.00-0.031); Immature Granulocyte Percent A 0.4 % (0-0.5); Lymphocytes Absolute Auto 1.67 K/mm3 (0.9-3.2); Lymphocytes Percent Auto 20.7 % (18.3-44.2); Mean Corpuscular HGB Conc 36.5 g/dl (32-36); Mean Corpuscular Hemoglobin 31.3 pg (26-34); Mean Corpuscular Volume 85.8 fl (80-100); Monocytes Absolute Auto 1.2 K/mm3 (0.1-0.6); Monocytes Percent Auto 14.9 % (2.6-8.5); Neutrophils Absolute Auto 5.1 K/mm3 (1.3-6.7); Neutrophils Percent Auto 63.6 % (45.5-73.1); Platelet Count Result 248 k/mm3 (150-375); Red Blood Count 5.27 M/mm3 (4.6-6.20); Red Cell Distribution Width 12.7 % (11.5-14.5); White Blood Count 8.1 K/mm3 (4.5-10.0)
[2021-05-22 18:24] LABS: Alanine Aminotransferase 32 U/L (4-50); Albumin Level 5.1 g/dL (3.5-5.1); Alkaline Phosphatase 113 U/L (38-126); Anion Gap 14 mmol/L (8-16); Aspartate Amino Transferase 39 U/L (17-59); Bilirubin,Total 2.2 mg/dL (0.2-1.3); Blood Urea Nitrogen 12 mg/dL (9-20); Calcium 9.7 mg/dL (8.4-10.2); Carbon Dioxide 26 mmol/L (22-30); Chloride 92 mmol/L (98-107); Estimated CRCL calculation 132 ml/min; Estimated Glomerular Filt Rate > 60; Glucose 114 mg/dL (65-110); Lipase 69 U/L (23-300); Potassium 2.8 mmol/L (3.4-5.0); Sodium 132 mmol/L (137-145)
[2021-05-22 18:42] LABS: Add Urine Microscopic? YES; Appearance Urine Clear (Clear); Bacteria Urine Trace /hpf; Bilirubin Urine 1+ (Negative); Blood Urine Negative (Negative); Color Urine Amber (Yellow); Glucose Urine UA Negative (Negative); Ketones Urine 1+ mg/dL (Negative); Leukocyte Esterase Ur Negative LEU/UL (Negative); Mucus Urine Heavy /lpf; Nitrate Urine Negative (Negative); Protein Urine 2+ mg/dL (Negative); RBC Urine 0-2 /hpf (0-2); Specific Grav Ur 1.025 (1.001-1.035); Squamous Epithelial Cell Urine Rare /hpf (Few); WBC Urine 0-3 /hpf
[2021-05-22] MEDS: ONDANSETRON INJ 4 MG/2 ML VIAL IV PUSH ×2 (21:17→22:36)
[2021-05-22] MEDS: POTASSIUM CHLORIDE 20 MEQ PACKET (FOR LIQUID) 40 MEQ PO (21:17)
[2021-05-22] MEDS: SODIUM CHLORIDE 0.9% IV 1,000 ML 999 ML IV CONT ×2 (21:18→22:36)
--- NOTE | 2021-05-22 21:20 | ED.NAVMDI ---
HPI - Nausea/Vomiting/Diarrhea General Chief complaint: Nausea/Vomiting/Diarrhea Stated complaint: Vomiting Time Seen by Provider: 05/22/21 20:57 Source: patient History of Present Illness HPI Narrative: Patient presents with nausea vomiting and left-sided abdominal pain. Presents symptoms been present for the past few days however his abdominal pain started a couple days ago. Reports he was here couple days ago was discharged home with Zofran the symptoms have persisted so he came back to the ER for evaluation. Denies recent antibiotics denies recent camping denies any known sick contacts. Denies any fevers, chest pain, shortness of breath. Pain is intermittent sharp no radiation is on the left side of his abdomen there are no clear aggravating or alleviating symptoms. Patient is currently without pain Related Data Allergies Allergy/AdvReac Type Severity Reaction Status Date / Time No Known Allergies Allergy Verified 05/20/21 12:21 Review of Systems Review of Systems: CONSTITUTIONAL: Denies fever, chills, or sweats. EYES: Denies visual changes, redness, or discharge. ENT: Denies rhinorrhea, congestion, sore throat, or otalgia. CARDIOVASCULAR: Denies chest pain, palpitations, or edema. RESPIRATORY: Denies cough or dyspnea. GASTROINTESTINAL: Reports abdominal pain, nausea, vomiting GENITOURINARY: Denies dysuria or hematuria. SKIN: Denies rash or itching. MUSCULOSKELETAL: Denies back pain, joint pain, or myalgia. NEUROLOGIC: Denies headache, numbness, dizziness, or weakness. PSYCHIATRIC: Denies anxiety or depression. All systems reviewed & are unremarkable except as noted in HPI and below PMFSH Past Medical History Medical History Cyclic vomiting syndrome Overweight Surgical History Surgical History History of circumcision Hx of cholecystectomy Social History Social History Alcohol intake: current Substance use: current Substance use type: marijuana Other substance usage details: he states he has cut down on marijuana use over the past 2 weeks. Gender identity (if verbalized by the patient): Male Exam Narrative: GENERAL: Well-appearing, well-nourished, and in no acute distress. HEAD: Normocephalic, atraumatic. EYES: PERRLA and EOMI. ENT: Nares clear, no rhinorrhea or epistaxis. Mucous membranes moist. NECK: Supple. No masses. No JVD CHEST: Clear to auscultation. No respiratory distress. No wheezes rales or rhonchi HEART: Regular rate and rhythm. No murmur heard. Normal peripheral pulses. ABDOMEN: Soft, nontender, nondistended, normal active bowel sounds. EXTREMITIES: Normal range of motion. No edema. SKIN: Warm, dry, no rash. NEURO: No focal deficits. Alert and oriented x3. PSYCH: Normal mood and affect. Course Reevaluation(s) Reevaluation #1: Patient reports feeling much improved and is sipping on water Date: 05/22/21 Time: 23:18 Vital Signs Vital signs: Vital Signs Temperature 36.8 C 05/22/21 17:53 Pulse Rate 110 H 05/22/21 17:53 Respiratory Rate 20 05/22/21 17:53 Blood Pressure 168/88 H 05/22/21 17:53 Pulse Oximetry 98 05/22/21 17:53 Temperature 37.6 C 05/22/21 20:21 Pulse Rate 88 05/22/21 23:54 Respiratory Rate 20 05/22/21 23:54 Blood Pressure 151/54 H 05/22/21 23:54 Pulse Oximetry 99 05/22/21 23:54 MDM - Nausea/Vomiting/Diarrhea MDM Narrative Medical decision making narrative: H&P as above, vss, pt looks clinically well, exam with nonacute abdomen, labs with hypokalemia likely related to emesis otherwise clinically unremarkable, additional labs/img considered, symptomatic relief available as needed, patient treated with fluids and Zofran. On reevaluation pt continues to looks clinically well. Suspect viral process, dns severe sepsis, severe dehydration, appendicitis, perforation, small
--- NOTE | 2021-05-22 23:18 | PC.NURSE ---
Assumed care of pt at this time. Pt alert and upright on stretcher, fluids infusing. Discussed POC. VSS.
== END 2021-05-23 | disposition home or self-care (01) ==
PROVIDERS: Family Medicine; Emergency Provider Emergency Medicine; PCP Family Medicine
DX: E87.6 Hypokalemia (principal); R11.2 Nausea with vomiting, unspecified; R10.9 Unspecified abdominal pain; E66.3 Overweight; Z68.38 Body mass index [BMI] 38.0-38.9, adult
CPT/HCPCS: 36415; 80053; 81001; 83690; 85025; 96361; 96374; 96376; 99284; A9270; J2405; J7030

== ENCOUNTER 2022-06-11 07:55 | Emergency (ER) | payer OTHER, SELFPAY ==
[2022-06-11] VITALS (13 sets, daily range): BP systolic 133–158; BP diastolic 75–98; PULSE 66–106; RESP 12–28; TEMP 36.8; O2SAT 97–100
--- NOTE | ~2022-06-11 | CT_ITS ---
EXAMINATION: CT abdomen pelvis wo con DATE: 06/11/2022 08:36 INDICATION: Left flank pain TECHNIQUE: Computed tomography (CT) of the abdomen and pelvis was performed without intravenous contr ast. The dose-length product (DLP) was 1492.25 mGy-cm. Automated exposure control and iterative recon struction technique were employed. COMPARISON: 12/31/2020 FINDINGS: The lung bases are clear. The heart size is normal. The gallbladder is surgically absent. T he liver, spleen, pancreas, and adrenal glands are normal. There is a nonobstructing 6 mm stone in th e left kidney. The right kidney is unremarkable. No stones are identified in the ureters or bladder. There is no hydronephrosis or hydroureter. No pathologically enlarged abdominal or pelvic lymph nodes are identified. There is no free intraperitoneal gas or evidence of bowel obstruction. There is mild lumbar spondylosis. IMPRESSION: 1. No CT correlate for the patient's symptoms. 2. Nonobstructing left nephrolithiasis. Reviewed, dictated and finalized at location A.
--- NOTE | 2022-06-11 08:25 | ED.GENADULT ---
HPI - General Adult General Chief complaint: Back Pain/Injury Stated complaint: L flank pain Time Seen by Provider: 06/11/22 08:01 Source: RN notes reviewed History of Present Illness HPI narrative: Patient presents emergency room from home for left flank pain. Patient states pain began approximately 9 PM last night. The pain is described as sharp and stabbing and radiates around the left side of the abdomen. Patient states has been associate with nausea and vomiting. States he is not taking thing for the pain at home he states he does have a history of having a kidney stone on the left side he denies any fevers or chills chest pain shortness of breath or any other symptoms Related Data Allergies Allergy/AdvReac Type Severity Reaction Status Date / Time No Known Allergies Allergy Verified 05/20/21 12:21 Review of Systems Review of Systems: Gen.: Denies fevers or chills ENT: Denies congestion Respiratory: Denies shortness of breath or cough CV: Denies chest pain or palpitations GI: See HPI denies burning, urgency, frequency or hematuria Musculoskeletal: Denies back pain or muscle pain Neuro: Denies numbness, tingling, weakness or focal weakness Skin: Denies rash Except as documented, all other systems reviewed and negative PMFSH Past Medical History Medical History Cyclic vomiting syndrome Overweight Surgical History Surgical History History of circumcision Hx of cholecystectomy Social History Social History Alcohol intake: current Substance use: current Substance use type: marijuana Other substance usage details: he states he has cut down on marijuana use over the past 2 weeks. Gender identity (if verbalized by the patient): Male Exam Narrative: APPEARANCE: No acute distress, nontoxic, resting in bed HEENT: Normocephalic, atraumatic, OMM RESPIRATORY: No respiratory distress, clear to auscultation bilaterally with no rhonchi wheezing or rales CARDIOVASCULAR: RRR s murmur ABDOMINAL: Soft nondistended tender palpation left lower quadrant left lower quadrant returns right upper quadrant right lower quadrant no rebound or guarding, left flank tenderness MUSCULOSKELETAl: Moves all extremities. No clubbing, cyanosis or edema. NEURO: Awake and alert. Following commands, speech normal, no focal deficits SKIN:: Warm, dry. Normal Color PSYCHIATRIC: Normal affect/mood Course Course Emergency Course: Patient states he is feeling better this time Discussed with patient results of workup and diagnosis. Discussed need for follow-up with primary care, proper use of medication, and reasons to return to the emergency department. Patient understands and agrees to current treatment plan Vital Signs Vital signs: Vital Signs Temperature 98.2 F 06/11/22 08:05 Pulse Rate 75 06/11/22 08:05 Respiratory Rate 12 06/11/22 08:05 Blood Pressure 133/91 H 06/11/22 08:05 Pulse Oximetry 97 06/11/22 08:05 Oxygen Delivery Room Air 06/11/22 08:05 Temperature 98.2 F 06/11/22 08:05 Pulse Rate 66 06/11/22 08:40 Respiratory Rate 17 06/11/22 08:40 Blood Pressure 133/91 H 06/11/22 08:05 Pulse Oximetry 98 06/11/22 08:40 Oxygen Delivery Room Air 06/11/22 08:05 Medical Decision Making MDM Narrative Medical decision making narrative: Patient's abdomen is soft without significant pain or signs of surgical abdomen on serial exams. Lab and x-ray evaluations are reviewed and patient is felt to be a reasonable candidate for outpatient management. Patient was instructed as to limitations of x-ray and laboratory evaluation and encouraged to return to ED or primary physician for repeat exam in 12 hours if continued or worsening pain Vital Signs Vital Signs: Vital Signs Temperature 98.2 F 06/11/22 08:05 Pulse Rate 75 06/11/22 0
[2022-06-11 08:26] LABS: Appearance Urine Clear (Clear); Bilirubin Urine 2+ (Negative); Blood Urine 1+ (Negative); Color Urine Yellow (Yellow); Glucose Urine UA Negative (Negative); Ketones Urine 4+ mg/dL (Negative); Leukocyte Esterase Ur Negative LEU/UL (Negative); Nitrate Urine Negative (Negative); Protein Urine 3+ mg/dL (Negative); Specific Grav Ur >= 1.030 (1.001-1.035); Urobilinogen Urine 0.2 mg/dL (<2.0); pH Urine 5.5 (5.0-9.0)
[2022-06-11 08:28] LABS: Basophils Percent Auto 0.3 % (0.2-1.2); Hematocrit 43.4 % (42.0-52.0); Hemoglobin 14.9 g/dL (14.0-18.0); Immature Granulocyte Absolute 0.04 K/mm3 (0.00-0.031); Immature Granulocyte Percent A 0.4 % (0-0.5); Lymphocytes Absolute Auto 0.71 K/mm3 (0.9-3.2); Lymphocytes Percent Auto 7.1 % (18.3-44.2); Mean Corpuscular HGB Conc 34.3 g/dl (32-36); Mean Corpuscular Hemoglobin 31.1 pg (26-34); Mean Corpuscular Volume 90.6 fl (80-100); Mean Platelet Volume 10.4 fl (7.4-10.4); Monocytes Absolute Auto 0.3 K/mm3 (0.1-0.6); Monocytes Percent Auto 2.8 % (2.6-8.5); Neutrophils Percent Auto 89.4 % (45.5-73.1); Platelet Count Result 215 k/mm3 (150-375); Red Blood Count 4.79 M/mm3 (4.6-6.20); Red Cell Distribution Width 12.3 % (11.5-14.5); White Blood Count 10.1 K/mm3 (4.5-10.0)
[2022-06-11 08:30] LABS: Mucus Urine Heavy /lpf; Squamous Epithelial Cell Urine Occasional /hpf (Few); WBC Urine 0-3 /hpf
[2022-06-11 08:33] LABS: Alanine Aminotransferase 28 U/L (6-50); Albumin Level 5.1 g/dL (3.5-5.1); Alkaline Phosphatase 127 U/L (38-126); Anion Gap 16 mmol/L (8-16); Aspartate Amino Transferase 33 U/L (17-59); Bilirubin,Total 1.1 mg/dL (0.2-1.3); Blood Urea Nitrogen 15 mg/dL (9-20); Calcium 9.3 mg/dL (8.4-10.2); Carbon Dioxide 25 mmol/L (22-30); Chloride 96 mmol/L (98-107); Estimated CRCL calculation 131 ml/min; Estimated Glomerular Filt Rate > 60; Glucose 136 mg/dL (65-110); Potassium 3.6 mmol/L (3.4-5.0); Sodium 137 mmol/L (137-145)
[2022-06-11 08:37] LABS: Add Urine Microscopic? YES
[2022-06-11] MEDS: ONDANSETRON INJ 4 MG/2 ML VIAL IV PUSH (08:39)
[2022-06-11] MEDS: SODIUM CHLORIDE 0.9% IV 1,000 ML 999 ML IV CONT ×2 (08:40→09:34)
[2022-06-11] MEDS: KETOROLAC 30 MG/ML VIAL (*BKC) IV PUSH (08:40)
== END 2022-06-11 10:45 | disposition home or self-care (01) ==
PROVIDERS: Emergency Provider Emergency Medicine; PCP Family Medicine
DX: R10.9 Unspecified abdominal pain (principal); R10.32 Left lower quadrant pain; F12.90 Cannabis use, unspecified, uncomplicated
CPT/HCPCS: 36415; 74176; 80053; 81001; 85025; 96361; 96374; 96375; 99284; J1885; J2405; J7030

== ENCOUNTER 2022-10-10 03:41 | Day surgery (SDC) | payer OTHER, SELFPAY ==
[2022-10-01 10:06] VITALS: BMI 38.7
--- NOTE | 2022-10-10 10:13 | P.PNAN_ITS ---
Anes - Initial Pre Proc Eval Procedure: Operation Date: 10/10/22 13:00 Proposed Procedures p Esophagogastroduodenoscopy - Helio Herr MD Date/Time: 10/10/22 10:13 Surgeon: Helio Herr MD Pre Op Diagnosis: N & V Patient Data Age: 32 Gender: M Height: 1.68 m Weight: 109 kg Allergies Allergy/AdvReac Type Severity Reaction Status Date / Time No Known Allergies Allergy Verified 10/10/22 11:17 Home Medications Medication Instructions Recorded Confirmed Type ondansetron 4 mg disintegrating 4 mg PO Q8H PRN nausea and 05/20/21 10/10/22 Rx tablet vomiting #10 tabs ibuprofen 600 mg tablet 600 mg PO TID PRN pain #14 tabs 06/11/22 10/10/22 Rx Patient hx anesthesia problems: none Family hx anesthesia problems: none Results Review: All pre-operative results and documents have been reviewed as part of the pre- operative evaluation. [facility] Past Medical History Medical History (Updated 10/10/22 @ 10:14 by Zack Pandya MD) Cyclic vomiting syndrome Marijuana use Obesity Surgical History Surgical History History of circumcision Hx of cholecystectomy Social History Social History Smoking status: Never smoker Alcohol intake: current Substance use: never Substance use type: marijuana Other substance usage details: he states he has cut down on marijuana use over the past 2 weeks. Living arrangements: with family Gender identity (if verbalized by the patient): Male Spiritual care concerns: No Anes - Eval Final PreProcedure Day of Procedure 10/10/22 10:13 Patient weight: morbidly obese Heart: regular rate and rhythm Lungs: clear to auscultation and normal air movement Airway: Mallampati scale class II Neurological: alert and oriented Last oral intake: >/= 8 hours ASA classification: III Emergent: no Anesthetic plan: proceed Anesthesia type and monitoring: general GIVS Results Review: All pre-operative results and documents have been reviewed as part of the pre- operative evaluation. Informed Consent: The patient's anesthetic plan and its attendant risks and benefits were discussed with the patient/family/POA. Questions were solicited and answers provided to the satisfaction of the patient/family/POA.
[2022-10-10 11:18] VITALS: BP 124/61; PULSE 57; RESP 20; TEMP 36.3; O2SAT 99
[2022-10-10] MEDS: LACTATED RINGERS 1,000 ML 150 ML IV CONT (11:20)
--- NOTE | 2022-10-10 11:55 | PM.HPGS ---
History of Present Illness History of Present Illness Consent: Risks, benefits, and alternatives have been discussed and questions answered. Patient agrees to proceed with procedure. Chief complaint: N & V Narrative: Octavio Russell Jr. is a 32 year old male with history of cyclic vomiting diagnosed years ago but he has been doing ok for several months, he is not taking any medication as prophylaxis, he used to smoke marijuana but when much younger. Review of Systems Constitutional: Constitutional: Denies headache(s) and Denies weakness Eyes: Eyes: Denies blurry vision ENT: Reports Normal hearing present, Denies headache(s) and Denies neck pain Cardiovascular: Cardiovascular: Denies chest pain and Denies dyspnea Respiratory: Respiratory: Denies dyspnea Gastrointestinal: Gastrointestinal: Reports no additional gastrointestinal complaints Genitourinary: Genitourinary: Denies dysuria Musculoskeletal: Musculoskeletal: Denies neck pain Integumentary/Breasts: Skin/Breast: Denies dry skin Neurologic: Reports Normal hearing present, Denies headache(s) and Denies weakness Psychiatric: Psychiatric: Denies anxiety Endocrine: Endocrine: Denies change in body appearance Hematologic/Lymphatic: Hematologic/Lymphatic: Denies easy bleeding Allergic/Immunologic: Allergic/Immunologic: Denies urticaria PMFSH Past Medical History Medical History (Updated 10/10/22 @ 10:14 by Zack Pandya MD) Cyclic vomiting syndrome Marijuana use Obesity Surgical History Surgical History History of circumcision Hx of cholecystectomy Social History Social History Smoking status: Never smoker Alcohol intake: current Substance use: never Substance use type: marijuana Other substance usage details: he states he has cut down on marijuana use over the past 2 weeks. Living arrangements: with family Gender identity (if verbalized by the patient): Male Spiritual care concerns: No Meds Home Medications and Allergies Home Medications Medication Instructions Recorded Confirmed Type ondansetron 4 mg disintegrating 4 mg PO Q8H PRN nausea and 05/20/21 10/10/22 Rx tablet vomiting #10 tabs ibuprofen 600 mg tablet 600 mg PO TID PRN pain #14 tabs 06/11/22 10/10/22 Rx Allergies Allergy/AdvReac Type Severity Reaction Status Date / Time No Known Allergies Allergy Verified 10/10/22 11:17 Vital Signs Vital Signs - 24 hr 10/10/22 11:18 Temperature 97.3 F L Pulse Rate 57 L Respiratory Rate 20 Blood Pressure 124/61 Pulse Oximetry 99 Oxygen Delivery Room Air Exam Const: General: comfortable and no acute distress HENMT: Face/Nose/Sinus: Normal nares present Eyes: General: appearance normal, both eyes and all related structures Neck: Neck: no JVD Resp: Auscultation: clear to auscultation bilaterally Cardio: Rate: regular rate Rhythm: regular rhythm GI: Inspection: non-distended GI Palp: Yes Soft to palpation Skin: General skin exam: normal color Neuro: General: gait normal Speech: normal speech Extrem: General: normal to inspection Psych: Mental Status: mental status grossly normal Assessment and Plan Assessment and plan (1) Cyclic vomiting syndrome: Code(s): R11.15 - Cyclical vomiting syndrome unrelated to migraine Status: Acute Assessment and Plan: egd with bx he does not want to take prophylaxis just yet
[2022-10-10 12:13] VITALS: BP 122/66; PULSE 58; RESP 19; O2SAT 99
[2022-10-10 12:23] VITALS: BP 113/63; PULSE 50; RESP 20; O2SAT 99
[2022-10-10 12:33] VITALS: BP 125/61; PULSE 51; RESP 18; O2SAT 98
== END 2022-10-10 12:41 | disposition home or self-care (01) ==
PROVIDERS: PCP Family Medicine; Visit Provider Internal Medicine Gastroenterology
PROC: 0DJ08ZZ Inspection of Upper Intestinal Tract, Via Natural or Artificial Opening Endoscopic (ICD-10-PCS; CPT 43235; principal; 2022-10-10 13:00)
DX: R11.15 Cyclical vomiting syndrome unrelated to migraine (principal); K29.70 Gastritis, unspecified, without bleeding; F12.90 Cannabis use, unspecified, uncomplicated; E66.01 Morbid (severe) obesity due to excess calories; Z68.41 Body mass index [BMI] 40.0-44.9, adult
CPT/HCPCS: 43239; 88305; J2001; J2704; J7120